=== PATIENT | female | born 1965 | race American Indian/Alaskan Native ===

== ENCOUNTER 2019-04-29 15:36 | Emergency (ER) | payer MEDICARE, OTHER ==
[2019-04-29 17:52] LABS: Basophils % (Auto) 0.7 % (0.0-1.8); Eosinophils # (Auto) 0.3 K/mm3 (0.0-0.4); Eosinophils % (Auto) 4.1 % (0.0-4.3); Hematocrit 35.6 % (30.3-42.9); Hemoglobin 11.6 gm/dl (10.1-14.3); Lymphocytes # (Auto) 1.6 K/mm3 (1.2-5.4); Lymphocytes % (Auto) 24.5 % (13.4-35.0); Mean Corpuscular HGB Conc 33 % (30-34); Mean Corpuscular Volume 85 fl (79-97); Monocytes # (Auto) 0.7 K/mm3 (0.0-0.8); Monocytes % (Auto) 11.3 % (0.0-7.3); Platelet Count 229 K/mm3 (140-440); Red Blood Count 4.21 M/mm3 (3.65-5.03); Red Cell Distribution Width 16.8 % (13.2-15.2)
[2019-04-29 18:03] LABS: BUN/Creatinine Ratio 25; Blood Urea Nitrogen 10 mg/dL (7-17); Calcium 8.6 mg/dL (8.4-10.2); Hemolysis Index 37
--- NOTE | 2019-04-29 18:54 | XRay Report ---
PROCEDURE: XR CHEST 1V AP TECHNIQUE: Chest radiograph single view. HISTORY: cough COMPARISONS: None . FINDINGS: Degenerative change both shoulders. No pneumothorax or right pleural effusion. Cardiac silhouette size slightly enlarged without definite vascular congestion. No acute displaced fracture. Nonspecific opacity in left lung base partly obscures the diaphragm. IMPRESSION: Opacity in left lung base may be small pleural effusion. There may be adjacent atelectasis and/or pne umonia Slight cardiomegaly without definite evidence of vascular congestion. This document is electronically signed by Felipe Bustos MD., April 29 2019 06:52:22 PM ET
[2019-04-29 20:45] LABS: Bacteria,Urine 1+ /HPF (Negative); Bilirubin,Urine NEG (Negative); Blood,Urine NEG (Negative); Color,Urine Yellow (Yellow); Mucus,Urine FEW /HPF; Protein,Urine <15 mg/dL mg/dL (Negative); RBC,Urine < 1.0 /HPF (0.0-6.0); Urobilinogen,Urine < 2.0 mg/dL (<2.0)
[2019-04-29 20:51] LABS: Amphetamine Screen,Urine PRESUMPTIVE NEGATIVE; Benzodiazepines Screen,Urine PRESUMPTIVE NEGATIVE; Cannabinoid Screen,Urine PRESUMPTIVE NEGATIVE; Cocaine Screen,Urine PRESUMPTIVE NEGATIVE; Methadone Screen,Urine PRESUMPTIVE NEGATIVE; Opiate Screen,Urine PRESUMPTIVE NEGATIVE
--- NOTE | 2019-04-29 21:06 | Cat Scan Report ---
PROCEDURE: CT CHEST WO CON TECHNIQUE: Computerized axial tomography of the chest was performed without contrast material. This study is performed without intravenous contrast and the sensitivity for pathology, including neoplasm s, adenopathy, abscess, pulmonary embolism and aortic dissection, is reduced. CT DOSE LENGTH PRODUCT: mGycm HISTORY: abnormal cxr COMPARISONS: None . FINDINGS: Heart and pericardium: Normal. Thoracic aorta: Normal. Pulmonary vasculature: Normal. Lymph nodes: No enlarged thoracic lymph nodes. Multiple nonenlarged lymph nodes are noted in bilater al axillary regions.Lungs: An irregular patchy density is noted involving superior segment left lowe r lobe.. Pleural space: No effusion, thickening, or pneumothorax. Musculoskeletal structures: Vertebral height is normal. There is evidence of ossification of posteri or longitudinal ligament involving T11-L1 vertebrae. Upper abdominal structures: No significant abnormality. IMPRESSION: Findings are consistent with left lower pneumonia.. This document is electronically signed by Floyd Palomo MD., April 29 2019 09:04:43 PM ET
--- NOTE | 2019-04-29 21:17 | Emergency Department Report ---
ED General Adult HPI - General Chief complaint: Altered Mental Status Stated complaint: ALTERED MENTAL STATUS Time Seen by Provider: 04/29/19 17:20 Source: EMS Mode of arrival: Stretcher Limitations: Altered Mental Status - History of Present Illness Initial comments: 54 yo F with hx of schizophrenia sent to ED for "altered mental status." Pt was admitted to [facility] on 04/27/19 for psychosis, delusions, impulsive behavior, speaking in incomplete sentences. Pt was then sedated. Per Abigail, staff at [facility], pt was sent here today for AMS, confusion , speaking in incomplete sentences, incontinence, drowsiness and unsteady gait. Abigail states this seems to be similar to initial admission exam. Upon me entering the room, pt is awake and eating a cheeseburger that was given to her by the of the patient that is sharing an exam room with her, on the other side of the curtain. Pt only states, "I think I have pneumonia." Has no other complaints. Does not appear to be in any distress. Sitter states pt easily falls asleep when we leave the room, however, speaks to her appropriately. -: This afternoon Severity scale (0 -10): 0 Associated Symptoms: cough - Related Data Previous Rx's Medication Instructions Recorded Last Taken Type Azithromycin [Zithromax TAB] 250 mg PO QDAY 4 Days #4 tablet 04/29/19 Unknown Rx Allergies Allergy/AdvReac Type Severity Reaction Status Date / Time haloperidol [From Haldol] Allergy Unknown Verified 04/29/19 16:35 ED Review of Systems ROS: Stated complaint: ALTERED MENTAL STATUS Other details as noted in HPI Comment: All other systems reviewed and negative Respiratory: cough ED Past Medical Hx - Past Medical History Previous Medical History?: Yes Hx Diabetes: Yes Hx Psychiatric Treatment: Yes (eun) - Surgical History Past Surgical History?: No - Social History Smoking Status: Never Smoker Substance Use Type: None - Medications Home Medications: Home Medications Medication Instructions Recorded Confirmed Last Taken Type Azithromycin [Zithromax TAB] 250 mg PO QDAY 4 Days #4 tablet 04/29/19 Unknown Rx ED Physical Exam - General Limitations: Altered Mental Status General appearance: alert, in no apparent distress - Head Head exam: Present: atraumatic, normocephalic - Eye Eye exam: Present: normal appearance - ENT ENT exam: Present: mucous membranes moist - Neck Neck exam: Present: normal inspection - Respiratory Respiratory exam: Present: normal lung sounds bilaterally. Absent: respiratory distress - Cardiovascular Cardiovascular Exam: Present: regular rate, normal rhythm - GI/Abdominal GI/Abdominal exam: Present: soft. Absent: distended, tenderness - Extremities Exam Extremities exam: Present: normal inspection - Neurological Exam Neurological exam: Present: alert - Psychiatric Psychiatric exam: Present: normal affect, normal mood - Skin Skin exam: Present: warm, dry, intact, normal color ED Course Vital Signs 04/29/19 04/29/19 04/29/19 16:34 17:00 17:34 Temperature 98.2 F Pulse Rate 97 H 94 H 99 H Respiratory 16 32 H 18 Rate Blood Pressure 136/86 Blood Pressure 135/74 145/87 [Left] O2 Sat by Pulse 99 98 100 Oximetry 04/29/19 04/29/19 04/29/19 19:03 19:12 19:48 Temperature 98.3 F Pulse Rate 99 H 102 H Respiratory 18 19 Rate Blood Pressure 145/87 135/87 Blood Pressure 145/87 135/87 [Left] O2 Sat by Pulse 98 100 99 Oximetry 04/29/19 04/29/19 20:00 21:00 Temperature Pulse Rate Respiratory Rate Blood Pressure 149/95 Blood Pressure [Left] O2 Sat by Pulse 99 97 Oximetry ED Medical Decision Making - Lab Data Result diagrams: 04/29/19 17:30 04/29/19 17:30 - Radiology Data Radiology results: report reviewed, image reviewed - Medical Decision Making CXR shows opacity in left ling base. CT Chest w/o contrast shows left lower lobe pneumonia. ABG was done due to pt's drowsiness reported by giovaniter. CO2 is not toxic. Pt has been awake and alert, always asking for something to eat. According to information nurse obtained from [facility], pt seems to be stable compared to her presentation 2 days ago. No resp distress. O2 sats have been normal here in ED. Will give first dose of abx here, discharge w/ rx. Critical care attestation.: If time is entered above; I have spent that time in minutes in the direct care of this critically ill patient, excluding procedure time. ED Disposition Clinical Impression: Pneumonia Disposition: DC-01 TO HOME OR SELFCARE Is pt being admited?: No Condition: Stable Instructions: Community-acquired Pneumonia (ED) Prescriptions: Azithromycin [Zithromax TAB] 250 mg PO QDAY 4 Days #4 tablet Referrals: STEPHEN CHING MD [Primary Care Provider] - 3-5 Days Time of Disposition: 21:38
[2019-04-29] MEDS ORDERED: ZITHROMAX PO ONE (21:33)
[2019-04-29] MEDS ORDERED: ROCEPHIN IM ONE (21:33)
[2019-04-29] MEDS ORDERED: XYLOCAINE 1% MPF 5 mL INFILTRATI ONE (21:33)
[2019-04-29 22:36] VITALS: BP 122/80
== END 2019-04-29 23:47 | disposition home or self-care (01) ==
LOC: EDBD → ED 15:36
DX: J18.1 Lobar pneumonia, unspecified organism (principal); E11.9 Type 2 diabetes mellitus without complications; F23 Brief psychotic disorder; F22 Delusional disorders; Z88.5 Allergy status to narcotic agent
CPT/HCPCS: 36415; 71045; 71250; 80048; 80307; 81001; 82140; 82803; 84484; 85025; 96372; 99285; J0696

== ENCOUNTER 2019-05-27 05:39 | Inpatient (IN) | payer MEDICARE ==
[2019-05-27] MEDS ORDERED: WATER FOR INJ Sterile (PF) 10 ML ONE (16:25)
[2019-05-27] MEDS: GEODON IM PRN ×2 (16:29→22:16)
[2019-05-27] MEDS: ATIVAN IM PRN ×2 (16:30→22:17)
[2019-05-27] MEDS ORDERED: D50W (25GM) Syringe IV PRN (19:45)
[2019-05-27] MEDS: HumaLOG SUB-Q SCH (23:19)
[2019-05-28] MEDS: HumaLOG SUB-Q SCH ×4 (08:19→21:35)
--- NOTE | 2019-05-28 08:51 | History and Physical Report ---
GP History & Physical - History of Present Illness Date of admission: 05/28/19 Date of Examination: 05/28/19 Reason for Admission: Danger to self, Danger to others, Psychopathology interference, Unable to care for self Chief Complaint: Inaudible words History of Present Illness: The patient is a 54yo AAF with history of Schizophrenia admitted with severe agitation, aggression towards others and severe disorganization. She brought by family to the ED with reports that patient was sitting outside in the heat for several hours, refused to eat or drinks. She has also been refusing to take her medications for several days. She was agitated in the ED and was given IM Haldol and Ativan. Nursing staff reports that she continues to be agitated, aggressive, disruptive and disorganized on the psych ayala. Her speech is gabbled and difficult to understand. She is aggressive towards staffs - she attempts to bite, spits at and kicks staffs. She attempts to elope from the ayala. She refuses to eat or drink. She is experiencing visual hallucinations - sees her kids on the hallway. Legal Status: Voluntary Patient Problems: Current Active Problems Schizophrenia, disorganized, chronic with acute exacerbation (Acute) Reaction to Hospitalization: Accepting Substance History - Substance History Drug Use: other (Unknown) Hx Tobacco Use: No Past psychiatric history - Past Medical History Past Medical History: diabetes - past Psychiatric treatment and history Psych: Psychosis, Schizophrenia - Social History Social history: lives with family (- with [facility]) Review of Systems ROS unobtainable: due to mental status Results - Results Labs/Vitals: Laboratory Last Values POC Glucose 168 (70-105) H 05/28/19 07:22 Last Vital Signs Temp 98.3 F 05/27/19 22:00 Pulse 100 H 05/27/19 22:00 Resp 18 05/27/19 22:00 BP 106/67 05/27/19 22:00 Pulse Ox 100 05/27/19 22:00 Physical Examination - Constitutional Vitals: Vital Signs Temp Pulse Resp BP Pulse Ox 98.3 F 100 H 18 106/67 100 05/27/19 22:00 05/27/19 22:00 05/27/19 22:00 05/27/19 22:00 05/27/19 22:00 Temperature -Last 24 Hours Temperature 98.3 F Temperature 98.3 F General appearance: Present: well-nourished, disheveled, malodorous - EENT Eyes: Present: PERRL, EOM intact ENT: hearing intact, clear oral mucosa - Neck Neck: Present: supple, normal ROM - Respiratory Respiratory effort: normal Mental Status Exam - Vital signs Last Vital Signs Temp 98.3 F 05/27/19 22:00 Pulse 100 H 05/27/19 22:00 Resp 18 05/27/19 22:00 BP 106/67 05/27/19 22:00 Pulse Ox 100 05/27/19 22:00 - Exam Orientation: person Affect: agitated Mood: congruent with affect Thought content: delusions Thought Process: Disorganized Perceptions: visual, hallucinations Speech: incoherent Concentration: unable to pay attention Motor activity: restless, agitated Level of consciousness: confused Memory: Recent Impaired, Remote Impaired Interaction: hostile, uncooperative Assessment and Plan - Psychiatric problem (1) Schizophrenia, disorganized, chronic with acute exacerbation Current Visit: Yes Status: Acute plan to address problem: Patient will be admitted for inpatient psychiatric evaluation, medication adjustment and close monitoring The patient's behavior, mood, sleep and appetite will be closely monitored. Patient will be enrolled in individual and group therapeutic sessions and encouraged to attend. Patient will be provided with a safe and structured environment. Patient's physical health needs will be addressed by the Hospitalist. Social Assessment will be completed and the Ui Lead Developer will work with patient and family to ensure a suitable and safe disposition Medication adjustment will be made as clinically indicated The patient agreed on the treatment plan, understood the risk, benefit, alternative treatment, potential consequence of no treatment, and gave informed consent. Physician Certification - Certification Statement Physician Certification Statement: This is an acknowledgement statement that MARGARET ROBERTS is a 54 year old F who requires inpatient psychiatric admission for treatment which could reasonably be expected to improve the patient's condition for Estimated period of time patient will need to remain in the hospital: [ ] Plan for post-hospital care: [ ]
[2019-05-28] MEDS ORDERED: GEODON IM PRN (10:00)
[2019-05-28] MEDS ORDERED: RISPERDAL 1 MG PO SCH (10:00)
[2019-05-28] MEDS: RisperDAL PO SCH ×2 (10:34→21:38)
[2019-05-29] MEDS: HumaLOG SUB-Q SCH ×4 (08:09→21:03)
--- NOTE | 2019-05-29 09:46 | Progress Note ---
Subjective Date of service: 05/29/19 Principal diagnosis: Schizophrenia Subjective Comment: Patient is irritable this morning. She continues to be agitated, aggressive, disruptive and disorganized Objective - Criteria for Continued Treatment Criteria for Continued Treatment: Improving Level of Functioning, Stablizing Level of Functioning, Improving Emotional/Socia - Mental Status Mental Status: Oriented x [address] - Objective Observation Participation Level: Minimal Reason(s) For Not Participating: Behaviors Assessment and Plan - Patient Problems (1) Schizophrenia, disorganized, chronic with acute exacerbation Current Visit: Yes Status: Acute Plan to address problem: Patient will be admitted for inpatient psychiatric evaluation, medication adjustment and close monitoring The patient's behavior, mood, sleep and appetite will be closely monitored. Patient will be enrolled in individual and group therapeutic sessions and encouraged to attend. Patient will be provided with a safe and structured environment. Patient's physical health needs will be addressed by the Hospitalist. Social Assessment will be completed and the Cashier Parking Lot will work with patient and family to ensure a suitable and safe disposition Medication adjustment will be made as clinically indicated Continue Risperidone 1mg bid Continue PRN Lorazepam and Geodon for severe agitation Start Tegretol 200mg bid for mood stabilization and aggression The patient agreed on the treatment plan, understood the risk, benefit, alternative treatment, potential consequence of no treatment, and gave informed consent.
[2019-05-29] MEDS: RisperDAL PO SCH ×2 (10:22→21:03)
[2019-05-29] MEDS: ATIVAN IM PRN (22:19)
[2019-05-30] MEDS: HumaLOG SUB-Q SCH ×4 (07:39→21:00)
[2019-05-30] MEDS: RisperDAL PO SCH ×3 (09:46→21:01)
--- NOTE | 2019-05-30 11:59 | Consultation ---
History of Present Illness - Reason for Consult Consult date: 05/30/19 Diabetes,sleep apnea Requesting physician: LOGAN SUGGS - History of Present Illness Patient is 54 yo admitted with schizophrenia with acute exacerbation. Hospitalist service consulted for medical management of diabetes. Review of her chart showed abnormal ABG last month, April. On initial evaluation she was sedated, very drowsy, pulse ox was 87% on room air. I ordered 2 Units Oxygen and ordered stat ABG, Chest X ray. ABG was abnormal with pH 7.33, CO2 of 55 and pO2 of 109 on 2l/min Oxygen. Will start Duoneb, Albuterol prn, consult Pulmonology. Patient has disorganized schizophrenia, so cannot give current history or past medical history and is also sedated. Past History Past Medical History: diabetes, other (schizophrenia) Past Surgical History: Other (Unknown, cannot obtain) Social history: lives with family (- with brother in [facility]) Family history: no significant family history Medications and Allergies Allergies Allergy/AdvReac Type Severity Reaction Status Date / Time haloperidol [From Haldol] Allergy Unknown Verified 04/29/19 16:35 Home Medications Medication Instructions Recorded Confirmed Last Taken Type Amantadine 100 mg PO BID 05/27/19 05/27/19 Unknown History Ativan INJ 2 mg IM Q6HR PRN 05/27/19 05/27/19 Unknown History Combivent Respimat 4 g IH 4XD 05/27/19 05/27/19 Unknown History Haldol 10 mg IM Q6HR PRN 05/27/19 05/27/19 Unknown History Phenytoin 300 mg PO HS 05/27/19 05/27/19 Unknown History Pravastatin 20 mg PO HS 05/27/19 05/27/19 Unknown History Risperdal 1 mg PO BID 05/27/19 05/27/19 Unknown History Azithromycin [Zithromax TAB] 250 mg PO QDAY 05/29/19 05/31/19 Unknown History Active Meds: Active Medications Carbamazepine (Tegretol) 200 mg PO BID REPLACED BY [facility] Last Admin: 05/30/19 09:46 Dose: 200 mg Documented by: Dextrose (D50w (25gm) Syringe) 50 ml IV PRN PRN PRN Reason: Hypoglycemia Insulin Human Lispro (Humalog) 0 unit SUB-Q ACHS REPLACED BY [facility]; Protocol Last Admin: 05/30/19 07:39 Dose: 4 unit Documented by: Lorazepam (Ativan) 2 mg IM Q6H PRN PRN Reason: Agitation Last Admin: 05/29/19 22:19 Dose: 2 mg Documented by: Risperidone (Risperdal) 1 mg PO BID [facility] Last Admin: 05/30/19 09:46 Dose: 1 mg Documented by: Ziprasidone (Geodon) 20 mg IM Q12H PRN PRN Reason: Agitation Stop: 05/31/19 09:59 Review of Systems ROS unobtainable: due to mental status Exam - Physical Exam Narrative exam: Gen: Not in acute distress, lying in bed, HEENT: Normocephalic, atraumatic Neck: supple, no JVD Heart: S1 and S2 reg, no murmurs, rubs or gallop Lungs: Clear, no crackles, no wheeze Abd: soft, non tender, non distended, normal BS Ext: No edema, no clubbing, no cyanosis, Neuro: Sedated, drowsy, arouseable - Constitutional Vitals: Temp Pulse Resp BP Pulse Ox 98 F 125 H 18 112/76 87 05/30/19 08:50 05/30/19 08:50 05/30/19 08:50 05/30/19 08:50 05/30/19 08:50 Results - Labs Labs: Abnormal lab results 05/29/19 05/29/19 05/30/19 Range/Units 16:19 19:59 07:08 POC Glucose 216 H 244 H 255 H (70-105) 05/30/19 Range/Units 11:31 POC Glucose 146 H (70-105) Assessment and Plan Schizopphrenia, exacerbation [facility] Hospitalist consulted for medical co-morbidities Acute resp failure with hypoxia, hypercarbia ABG done Start Duoneb q 6h Albuterol Consult Pulmonology Patient has abnormal ABG with PH 7.33, CO2 of 55 and pO2 of 109 on 2l/min Oxygen Initial evaluation showed patient very drowsy and I ordered pulse Ox was low 87%, therfore ordered ABG and consult Pulm. Cannot obtain history from patient. She propably has sleep apnea or maybe COPD but no history, no family present Obtain CBC,BMP Schizophrenia managed by Psychiatry Diabetes mellitus type 2 Fingerstick qac and hs Full code status.
--- NOTE | 2019-05-30 12:33 | XRay Report ---
CHEST 1 VIEW 12:17 PM INDICATION / CLINICAL INFORMATION: Hypoxia. COMPARISON: 04/29/2019 FINDINGS: SUPPORT DEVICES: None. HEART / MEDIASTINUM: There is mild cardiomegaly. Pulmonary vasculature is normal. LUNGS / PLEURA: No significant pulmonary or pleural abnormality. Mild increased opacity in both lower lung zones has cleared. ADDITIONAL FINDINGS: There are degenerative changes involving the spine and shoulders. IMPRESSION: Cardiomegaly without acute abnormality. Signer Name: Rocco Renee MD Signed: 05/30/2019 12:29 PM Workstation Name: [id number]
[2019-05-30] MEDS ORDERED: PROVENTIL IH PRN (13:42)
[2019-05-30] MEDS ORDERED: ATIVAN IM PRN (17:42)
[2019-05-30] MEDS: DUONEB *Not for PRN Use IH SCH ×2 (17:47→20:19)
--- NOTE | 2019-05-30 17:47 | Consultation ---
History of Present Illness Reason for consult: other (sedation acute resp failure) History of present illness: This is a 54 yo female w hx of schizophrenia who was recently admitted from home for agitation and disorganization. She had episode of agitation last PM and received ativan. She has been lethargi. Abg done showed some acute and possible chronic resp acidosis. She also has had BG checked and today no evidence of hypoglycemia Presently she is arousable but falls asleep easily Past History Past Medical History: diabetes Past Surgical History: Other (Unknown, cannot obtain) Social history: lives with family (- with brother in [facility]) Family history: no significant family history Medications and Allergies Allergies Allergy/AdvReac Type Severity Reaction Status Date / Time haloperidol [From Haldol] Allergy Unknown Verified 04/29/19 16:35 Home Medications Medication Instructions Recorded Confirmed Last Taken Type Amantadine 100 mg PO BID 05/27/19 05/27/19 Unknown History Ativan INJ 2 mg IM Q6HR PRN 05/27/19 05/27/19 Unknown History Combivent Respimat 4 g IH 4XD 05/27/19 05/27/19 Unknown History Haldol 10 mg IM Q6HR PRN 05/27/19 05/27/19 Unknown History Phenytoin 300 mg PO HS 05/27/19 05/27/19 Unknown History Pravastatin 20 mg PO HS 05/27/19 05/27/19 Unknown History Risperdal 1 mg PO BID 05/27/19 05/27/19 Unknown History Azithromycin [Zithromax TAB] 250 mg PO QDAY 05/29/19 Unknown History Active Meds: Active Medications Albuterol (Proventil) 2.5 mg IH Q4HRT PRN PRN Reason: Shortness Of Breath Albuterol/Ipratropium (Duoneb *Not For Prn Use*) 1 ampul IH Q6HRT [facility] Carbamazepine (Tegretol) 200 mg PO BID [facility] Last Admin: 05/30/19 09:46 Dose: 200 mg Documented by: Dextrose (D50w (25gm) Syringe) 50 ml IV PRN PRN PRN Reason: Hypoglycemia Insulin Human Lispro (Humalog) 0 unit SUB-Q [facility]; Protocol Last Admin: 05/30/19 13:07 Dose: Not Given Documented by: Risperidone (Risperdal) 1 mg PO BID [facility] Last Admin: 05/30/19 09:46 Dose: 1 mg Documented by: Ziprasidone (Geodon) 20 mg IM Q12H PRN PRN Reason: Agitation Stop: 05/31/19 09:59 Physical Examination Vital signs: Vital Signs Temp Pulse Resp BP Pulse Ox 98.3 F 100 H 18 106/67 100 05/27/19 13:22 05/27/19 13:22 05/27/19 13:22 05/27/19 13:22 05/27/19 13:22 General appearance: no acute distress Eyes: non-icteric ENT: oropharynx moist Neck: supple Effort: normal Results - Laboratory Findings ABG POC ABG pH 7.335 (7.35-7.45) L 05/30/19 12:29 POC ABG pCO2 55.4 (35-45) H 05/30/19 12:29 POC ABG pO2 109 (80-105) H 05/30/19 12:29 POC ABG HCO3 29.5 (22-26 mml/L) 05/30/19 12:29 POC ABG Total CO2 31 (23-27mmol/L) 05/30/19 12:29 POC ABG O2 Sat 98 05/30/19 12:29 Abnormal lab findings: Abnormal Labs 05/27/19 05/27/19 05/27/19 13:35 16:46 19:56 POC ABG pH POC ABG pCO2 POC ABG pO2 POC Glucose 183 H 180 H 181 H 05/28/19 05/28/19 05/28/19 07:22 11:56 16:31 POC ABG pH POC ABG pCO2 POC ABG pO2 POC Glucose 168 H 256 H 213 H 05/28/19 05/29/19 05/29/19 20:06 07:22 11:44 POC ABG pH POC ABG pCO2 POC ABG pO2 POC Glucose 289 H 172 H 241 H 05/29/19 05/29/19 05/30/19 16:19 19:59 07:08 POC ABG pH POC ABG pCO2 POC ABG pO2 POC Glucose 216 H 244 H 255 H 05/30/19 05/30/19 05/30/19 11:31 12:29 16:20 POC ABG pH 7.335 L POC ABG pCO2 55.4 H POC ABG pO2 109 H POC Glucose 146 H 169 H - Diagnostic Findings Chest x-ray: report reviewed, image reviewed
--- NOTE | 2019-05-30 18:48 | Progress Note ---
Subjective Date of service: 05/30/19 Principal diagnosis: Schizophrenia Subjective Comment: Patient slept through the night. She is calm this morning but continues to be be agitated, aggressive, disruptive and disorganized at times. Objective - Criteria for Continued Treatment Criteria for Continued Treatment: Improving Level of Functioning, Improving Treatment / Medication Compliance, Confronting Denial of Illness, Stablizing Level of Functioning, Improving Emotional/Socia, Decreasing Frequency of Hospitalization - Mental Status Mental Status: Oriented x [address] - Objective Observation Participation Level: Minimal Reason(s) For Not Participating: Behaviors Assessment and Plan - Patient Problems (1) Schizophrenia, disorganized, chronic with acute exacerbation Current Visit: Yes Status: Acute Plan to address problem: Patient will be admitted for inpatient psychiatric evaluation, medication adjustment and close monitoring The patient's behavior, mood, sleep and appetite will be closely monitored. Patient will be enrolled in individual and group therapeutic sessions and encouraged to attend. Patient will be provided with a safe and structured environment. Patient's physical health needs will be addressed by the Hospitalist. Social Assessment will be completed and the Tape Recorder Mechanic will work with patient and family to ensure a suitable and safe disposition Medication adjustment will be made as clinically indicated Continue Risperidone 1mg bid Continue PRN Lorazepam and Geodon for severe agitation Continue Tegretol 200mg bid for mood stabilization and aggression (Started on 05/30) The patient agreed on the treatment plan, understood the risk, benefit, alternative treatment, potential consequence of no treatment, and gave informed consent.
[2019-05-31] MEDS: DUONEB *Not for PRN Use IH SCH ×4 (02:56→22:03)
[2019-05-31] MEDS: HumaLOG SUB-Q SCH ×4 (09:45→21:39)
[2019-05-31] MEDS: RisperDAL PO SCH ×2 (09:46→21:39)
--- NOTE | 2019-05-31 10:25 | Progress Note ---
Subjective Date of service: 05/31/19 Principal diagnosis: Schizophrenia Subjective Comment: Patient slept through the night. She is calm and cooperative, compliant with medications, sleeps and eats well. No agitation or prn meds required for more than 24 hours. Will plan to discharge in am if she continues to do well. Objective - Mental Status Mental Status: Oriented x [address] - Objective Observation Participation Level: Moderate Assessment and Plan - Patient Problems (1) Schizophrenia, disorganized, chronic with acute exacerbation Current Visit: Yes Status: Acute Plan to address problem: Patient will be admitted for inpatient psychiatric evaluation, medication adjustment and close monitoring The patient's behavior, mood, sleep and appetite will be closely monitored. Patient will be enrolled in individual and group therapeutic sessions and encouraged to attend. Patient will be provided with a safe and structured environment. Patient's physical health needs will be addressed by the Hospitalist. Social Assessment will be completed and the Floor Sander will work with patient and family to ensure a suitable and safe disposition Medication adjustment will be made as clinically indicated Continue Risperidone 1mg bid Continue PRN Lorazepam and Geodon for severe agitation Continue Tegretol 200mg bid for mood stabilization and aggression (Started on 05/30) The patient agreed on the treatment plan, understood the risk, benefit, alternative treatment, potential consequence of no treatment, and gave informed consent.
--- NOTE | 2019-05-31 15:52 | Progress Note ---
Assessment and Plan Imp: 1. A/C respiratory failure, hypercapnea (? medication-related, ? COPD) 2. Acute respiratory failure, hypoxia 2/2 above 3. Schizophrenia with acute exac. 4. Altered mental status, better Rec: 1. Goal sats are 88-92% 2. Prior to d/c would check RA sats at rest and w/ exertion; if less than 88% arrange home O2 2L NC with diagnosis of COPD (presumptive dx) 3. May benefit from home nebulizer machine and continued Duonebs QID prn, see #2 4. Needs outpatient pulm f/u; PFTs would be beneficial but I doubt she could cooperate with such 5. Avoid narcotics and other sedatives if possible No family present Subjective Date of service: 05/31/19 Principal diagnosis: Schizophrenia Interval history: No events. Poor historian. Awake, alert. O2 off currently. Denies SOB. Unable to tell me about smoking hx. Active Medications Albuterol (Proventil) 2.5 mg IH Q4HRT PRN PRN Reason: Shortness Of Breath Albuterol/Ipratropium (Duoneb *Not For Prn Use*) 1 ampul IH Q6HRT [facility] Last Admin: 05/31/19 10:57 Dose: 1 ampul Documented by: Carbamazepine (Tegretol) 200 mg PO BID [facility] Last Admin: 05/31/19 09:46 Dose: 200 mg Documented by: Dextrose (D50w (25gm) Syringe) 50 ml IV PRN PRN PRN Reason: Hypoglycemia Insulin Human Lispro (Humalog) 0 unit SUB-Q ACHS [facility]; Protocol Last Admin: 05/31/19 12:48 Dose: 4 unit Documented by: Lorazepam (Ativan) 1 mg IM Q8H PRN PRN Reason: Agitation Risperidone (Risperdal) 1 mg PO BID [facility] Last Admin: 05/31/19 09:46 Dose: 1 mg Documented by: Objective Vital Signs - 12hr 05/31/19 05/31/19 05/31/19 09:31 10:50 10:59 Temperature 97.5 F L Pulse Rate 110 H Pulse Rate [ 117 H Left Throughout ] Pulse Rate [ 112 H Right Throughout] Respiratory 20 Rate Respiratory 18 Rate [Left Throughout] Respiratory 18 Rate [Right Throughout] Blood Pressure 122/78 [Right] O2 Sat by Pulse 99 97 Oximetry 05/31/19 11:04 Temperature Pulse Rate Pulse Rate [ 112 H Left Throughout ] Pulse Rate [ 114 H Right Throughout] Respiratory Rate Respiratory 18 Rate [Left Throughout] Respiratory 18 Rate [Right Throughout] Blood Pressure [Right] O2 Sat by Pulse Oximetry Constitutional: no acute distress Eyes: non-icteric ENT: oropharynx moist Neck: supple Effort: normal Ascultation: Bilateral: wheezes (mild/faint expiratory wheezes) Cardiovascular: regular rate and rhythm (no mrg) Gastrointestinal: normoactive bowel sounds, soft, non-tender, non-distended Integumentary: normal Extremities: no cyanosis, no edema, pink and warm Neurologic: normal mental status, non-focal exam Psychiatric: mood appropriate, affect normal ABG, PT/INR, D-dimer: ABG POC ABG pH 7.306 (7.35-7.45) L 05/30/19 20:26 POC ABG pCO2 58.9 (35-45) H 05/30/19 20:26 POC ABG pO2 155 (80-105) H 05/30/19 20:26 POC ABG HCO3 29.4 (22-26 mml/L) 05/30/19 20:26 POC ABG Total CO2 31 (23-27mmol/L) 05/30/19 20:26 POC ABG O2 Sat 99 05/30/19 20:26 Abnormal lab findings: Abnormal Labs 05/27/19 05/27/19 05/27/19 13:35 16:46 19:56 POC ABG pH POC ABG pCO2 POC ABG pO2 POC Glucose 183 H 180 H 181 H 05/28/19 05/28/19 05/28/19 07:22 11:56 16:31 POC ABG pH POC ABG pCO2 POC ABG pO2 POC Glucose 168 H 256 H 213 H 05/28/19 05/29/19 05/29/19 20:06 07:22 11:44 POC ABG pH POC ABG pCO2 POC ABG pO2 POC Glucose 289 H 172 H 241 H 05/29/19 05/29/19 05/30/19 16:19 19:59 07:08 POC ABG pH POC ABG pCO2 POC ABG pO2 POC Glucose 216 H 244 H 255 H 05/30/19 05/30/19 05/30/19 11:31 12:29 16:20 POC ABG pH 7.335 L POC ABG pCO2 55.4 H POC ABG pO2 109 H POC Glucose 146 H 169 H 05/30/19 05/30/19 05/31/19 20:26 20:45 06:46 POC ABG pH 7.306 L POC ABG pCO2 58.9 H POC ABG pO2 155 H POC Glucose 185 H 153 H 05/31/19 11:47 POC ABG pH POC ABG pCO2 POC ABG pO2 POC Glucose 262 H Chest x-ray: report reviewed, image reviewed (clear lungs)
[2019-06-01] MEDS: DUONEB *Not for PRN Use IH SCH ×2 (06:09→08:42)
[2019-06-01] MEDS ORDERED: PROVENTIL IH PRN (08:42)
[2019-06-01] MEDS: HumaLOG SUB-Q SCH ×4 (08:44→21:17)
[2019-06-01] MEDS: RisperDAL PO SCH ×2 (09:40→21:21)
--- NOTE | 2019-06-01 10:23 | Progress Note ---
Subjective Date of service: 06/01/19 Principal diagnosis: Schizophrenia Subjective Comment: Patient is disorganized, unable to care for self and unsafe for discharge home. She is compliant with medications with no reported or observed side effects. She is uncooperative with interview this morning. Appears irritable. Objective - Criteria for Continued Treatment Criteria for Continued Treatment: Improving Level of Functioning, Stablizing Level of Functioning, Improving Emotional/Socia - Mental Status Mental Status: Oriented x 1 Person only - Objective Observation Participation Level: Minimal Assessment and Plan - Patient Problems (1) Schizophrenia, disorganized, chronic with acute exacerbation Current Visit: Yes Status: Acute Plan to address problem: Patient will be admitted for inpatient psychiatric evaluation, medication adjustment and close monitoring The patient's behavior, mood, sleep and appetite will be closely monitored. Patient will be enrolled in individual and group therapeutic sessions and encouraged to attend. Patient will be provided with a safe and structured environment. Patient's physical health needs will be addressed by the Hospitalist. Social Assessment will be completed and the Livestock Judging Coach will work with patient and family to ensure a suitable and safe disposition Medication adjustment will be made as clinically indicated Continue Risperidone 1mg bid Continue PRN Lorazepam and Geodon for severe agitation Continue Tegretol 200mg bid for mood stabilization and aggression (Started on 05/30) The patient agreed on the treatment plan, understood the risk, benefit, alte rnative treatment, potential consequence of no treatment, and gave informed consent.
--- NOTE | 2019-06-01 13:31 | Event Note ---
Date: 06/01/19 Reviewed notes. Patient refusing O2. O2 saturation on RA is normal. Can remain off of O2 as long as O2 sats > 88%. She is also non-compliant with breathing treatments. If she continues to refuse these and remains otherwise stable pulmonary-moran there would be no need to get these arranged for outpatient use. We will follow peripherally but please call with questions or concerns.
[2019-06-02] MEDS: HumaLOG SUB-Q SCH ×4 (09:43→21:20)
[2019-06-02] MEDS: RisperDAL PO SCH ×2 (09:44→21:21)
--- NOTE | 2019-06-02 15:32 | Progress Note ---
Subjective Date of service: 06/02/19 Principal diagnosis: Schizophrenia Subjective Comment: Patient is disorganized, unable to care for self and unsafe for discharge home. She is compliant with medications with no reported or observed side effects. She is uncooperative with interview this morning. Objective - Criteria for Continued Treatment Criteria for Continued Treatment: Improving Level of Functioning, Stablizing Level of Functioning, Improving Emotional/Socia - Mental Status Mental Status: Oriented x [address] & [address] - Objective Observation Participation Level: Minimal Assessment and Plan - Patient Problems (1) Schizophrenia, disorganized, chronic with acute exacerbation Current Visit: Yes Status: Acute Plan to address problem: Patient will be admitted for inpatient psychiatric evaluation, medication adjustment and close monitoring The patient's behavior, mood, sleep and appetite will be closely monitored. Patient will be enrolled in individual and group therapeutic sessions and encouraged to attend. Patient will be provided with a safe and structured environment. Patient's physical health needs will be addressed by the Hospitalist. Social Assessment will be completed and the Examiner Of Currency will work with patient and family to ensure a suitable and safe disposition Medication adjustment will be made as clinically indicated Continue Risperidone 1mg bid Continue PRN Lorazepam and Geodon for severe agitation Continue Tegretol 200mg bid for mood stabilization and aggression (Started on 05/30) The patient agreed on the treatment plan, understood the risk, benefit, alternative treatment, potential consequence of no treatment, and gave informed consent.
--- NOTE | 2019-06-02 15:48 | Progress Note ---
Assessment and Plan - Patient Problems (1) COPD (chronic obstructive pulmonary disease) Current Visit: Yes Status: Acute (2) Schizophrenia, disorganized, chronic with acute exacerbation Current Visit: Yes Status: Acute (3) Altered mental status Current Visit: Yes Status: Acute (4) Acute respiratory failure with hypercapnia Current Visit: Yes Status: Acute (5) Acute respiratory failure with hypoxemia Current Visit: Yes Status: Acute Subjective Principal diagnosis: Schizophrenia Interval history: awake and responsive Answers questions but hard to understand Objective Constitutional: no acute distress Eyes: non-icteric ENT: oropharynx moist Neck: supple Effort: normal Ascultation: Bilateral: wheezes (mild/faint expiratory wheezes) Cardiovascular: regular rate and rhythm (no mrg) Gastrointestinal: normoactive bowel sounds, soft, non-tender, non-distended Integumentary: normal Extremities: no cyanosis, no edema, pink and warm Neurologic: normal mental status, non-focal exam Psychiatric: mood appropriate, affect normal ABG, PT/INR, D-dimer: ABG POC ABG pH 7.306 (7.35-7.45) L 05/30/19 20:26 POC ABG pCO2 58.9 (35-45) H 05/30/19 20:26 POC ABG pO2 155 (80-105) H 05/30/19 20:26 POC ABG HCO3 29.4 (22-26 mml/L) 05/30/19 20:26 POC ABG Total CO2 31 (23-27mmol/L) 05/30/19 20:26 POC ABG O2 Sat 99 05/30/19 20:26 Abnormal lab findings: Abnormal Labs 05/27/19 05/27/19 05/27/19 13:35 16:46 19:56 POC ABG pH POC ABG pCO2 POC ABG pO2 POC Glucose 183 H 180 H 181 H 05/28/19 05/28/19 05/28/19 07:22 11:56 16:31 POC ABG pH POC ABG pCO2 POC ABG pO2 POC Glucose 168 H 256 H 213 H 05/28/19 05/29/19 05/29/19 20:06 07:22 11:44 POC ABG pH POC ABG pCO2 POC ABG pO2 POC Glucose 289 H 172 H 241 H 05/29/19 05/29/19 05/30/19 16:19 19:59 07:08 POC ABG pH POC ABG pCO2 POC ABG pO2 POC Glucose 216 H 244 H 255 H 05/30/19 05/30/19 05/30/19 11:31 12:29 16:20 POC ABG pH 7.335 L POC ABG pCO2 55.4 H POC ABG pO2 109 H POC Glucose 146 H 169 H 05/30/19 05/30/19 05/31/19 20:26 20:45 06:46 POC ABG pH 7.306 L POC ABG pCO2 58.9 H POC ABG pO2 155 H POC Glucose 185 H 153 H 05/31/19 05/31/19 05/31/19 11:47 16:53 20:49 POC ABG pH POC ABG pCO2 POC ABG pO2 POC Glucose 262 H 222 H 205 H 06/01/19 06/01/19 06/01/19 07:11 11:32 16:44 POC ABG pH POC ABG pCO2 POC ABG pO2 POC Glucose 170 H 279 H 262 H 06/01/19 06/02/19 06/02/19 20:10 08:39 11:53 POC ABG pH POC ABG pCO2 POC ABG pO2 POC Glucose 235 H 171 H 207 H
[2019-06-03] MEDS: HumaLOG SUB-Q SCH ×4 (08:50→21:37)
[2019-06-03] MEDS: RisperDAL PO SCH ×2 (09:05→21:36)
--- NOTE | 2019-06-03 22:14 | Progress Note ---
Subjective Date of service: 06/03/19 Principal diagnosis: Schizophrenia Subjective Comment: Patient is disorganized, unable to care for self and unsafe for discharge home. She is compliant with medications with no reported or observed side effects. She is uncooperative with interview this morning. Objective - Criteria for Continued Treatment Criteria for Continued Treatment: Improving Level of Functioning, Stablizing Level of Functioning, Improving Emotional/Socia - Mental Status Mental Status: Oriented x 1 Person only - Objective Observation Participation Level: Moderate Assessment and Plan - Patient Problems (1) Schizophrenia, disorganized, chronic with acute exacerbation Current Visit: Yes Status: Acute Plan to address problem: Patient will be admitted for inpatient psychiatric evaluation, medication ad justment and close monitoring The patient's behavior, mood, sleep and appetite will be closely monitored. Patient will be enrolled in individual and group therapeutic sessions and encouraged to attend. Patient will be provided with a safe and structured environment. Patient's physical health needs will be addressed by the Hospitalist. Social Assessment will be completed and the Eeo Officer will work with patient and family to ensure a suitable and safe disposition Medication adjustment will be made as clinically indicated Continue Risperidone 1mg bid Continue PRN Lorazepam and Geodon for severe agitation Continue Tegretol 200mg bid for mood stabilization and aggression (Started on 05/30) The patient agreed on the treatment plan, understood the risk, benefit, alternative treatment, potential consequence of no treatment, and gave informed consent.
[2019-06-04 00:35] VITALS: BP 125/75
[2019-06-04] MEDS: HumaLOG SUB-Q SCH ×4 (12:05→23:01)
[2019-06-04] MEDS: RisperDAL PO SCH ×2 (12:06→21:41)
--- NOTE | 2019-06-04 17:05 | Progress Note ---
Subjective Date of service: 06/04/19 Principal diagnosis: Schizophrenia Subjective Comment: Patient is calm, feds herself and participate in her self care. She is compliant with medications with no reported or observed side effects. Will plan to discharge patient in am tomorrow if she continues to do well. Objective - Criteria for Continued Treatment Criteria for Continued Treatment: Stablizing Level of Functioning, Improving Emotional/Socia - Mental Status Mental Status: Oriented x [address] - Objective Observation Participation Level: Moderate Assessment and Plan - Patient Problems (1) Schizophrenia, disorganized, chronic with acute exacerbation Current Visit: Yes Status: Acute Plan to address problem: Patient will be admitted for inpatient psychiatric evaluation, medication adjustment and close monitoring The patient's behavior, mood, sleep and appetite will be closely monitored. Patient will be enrolled in individual and group therapeutic sessions and encouraged to attend. Patient will be provided with a safe and structured environment. Patient's physical health needs will be addressed by the Hospitalist. Social Assessment will be completed and the Technical Operations Manager will work with marvel ent and family to ensure a suitable and safe disposition Medication adjustment will be made as clinically indicated Continue Risperidone 1mg bid Continue PRN Lorazepam and Geodon for severe agitation Continue Tegretol 200mg bid for mood stabilization and aggression (Started on 05/30) The patient agreed on the treatment plan, understood the risk, benefit, alternative treatment, potential consequence of no treatment, and gave informed consent.
[2019-06-05] MEDS: HumaLOG SUB-Q SCH ×3 (07:30→18:55)
--- NOTE | 2019-06-05 07:58 | Discharge Summary ---
Providers - Providers Date of Admission: 05/27/19 07:15 Date of discharge: 06/05/19 Attending physician: LOGAN SUGGS MD 05/30/19 12:55 Consult to Physician [CONS] Routine Comment: Consulting Provider: JOHN CALIX Physician Instructions: Reason For Exam: Acute resp failure with hypoxia and hypercarbia 06/01/19 08:29 Consult to Physician [CONS] Routine Comment: Consulting Provider: RIKY CORTES Physician Instructions: Reason For Exam: MEDICAL MANAGEMENT H&P [facility] Reason for admission: Stting outside in the heat for several hours, refused to eat, drink or take Condition: Good Hospital course: The patient was provided inpatient psychiatric treatment with safe and supportive environment, group therapy, individual counseling, psychiatric medication, medication adjustment, adverse effect monitor, medical evaluation, medical treatment, social service assessment, family/social support meeting, placement assessment and psycho-education. The patients mood, anxiety, thoughts, stress management skill, cognition, impulse/anger control, motivation, understanding of disease, compliance to treatment and appreciation on family/social support are improved and stabilized. At the time of discharge, the patient had no suicidal ideas, no homicidal ideas, no aggressive thoughts, no endangering behavior and no debilitating adverse effects. The patient agreed on the treatment plan, understood the risk, benefit, alternative treatment, potential consequence of no treatment, and gave informed consent. The patient was advised to be compliant with medications, not to use drugs and not to drink alcohol. The patient understands that if suicidal ideas, homicidal ideas, or any endangering thoughts arise, the patient should immediately seek for emergent assistance including but not limited to crisis hot line and emergency room. Follow up with out-patient Psychiatrist and PCP within 14 - 21 days of discharge. Disposition: - TO HOME OR SELFCARE Allergies/Adverse Reactions: Allergies haloperidol [From Haldol] Allergy (Verified 04/29/19 16:35) Unknown Vital Signs: Last Vital Signs Temp 98.4 F 06/04/19 00:35 Pulse 110 H 06/04/19 00:35 Resp 18 06/04/19 00:35 BP 125/75 06/04/19 00:35 Pulse Ox 100 06/04/19 00:35 Last Lab: Laboratory Last Values POC ABG pH 7.306 (7.35-7.45) L 07/07/19 20:26 POC ABG pCO2 58.9 (35-45) H 05/30/19 20:26 POC ABG pO2 155 (80-105) H 05/30/19 20:26 POC ABG HCO3 29.4 (22-26 mml/L) 05/30/19 20:26 POC ABG Total CO2 31 (23-27mmol/L) 05/30/19 20:26 POC ABG O2 Sat 99 05/30/19 20:26 POC ABG Base Excess 3 ((-2) - (+3)mmol/L) 05/30/19 20:26 3 % 05/30/19 20:26 POC Glucose 161 (70-105) H 06/05/19 07:05 - Discharge Diagnoses (1) Schizophrenia, disorganized, chronic with acute exacerbation Status: Acute Core Measure Documentation - Palliative Care Palliative Care/ Comfort Measures: Not Applicable - Core Measures Any of the following diagnoses?: none Exam - Constitutional Vitals: Temp Pulse Resp BP Pulse Ox 98.4 F 110 H 18 125/75 100 06/04/19 00:35 06/04/19 00:35 06/04/19 00:35 06/04/19 00:35 06/04/19 00:35 General appearance: Present: no acute distress, well-nourished - EENT Eyes: Present: PERRL, EOM intact ENT: hearing intact, clear oral mucosa - Neck Neck: Present: supple, normal ROM - Respiratory Respiratory effort: normal Plan Activity: advance as tolerated Weight Bearing Status: Weight Bear as Tolerated Follow up with: STEPHEN CHING MD [Primary Care Provider] - 7 Days Prescriptions: risperiDONE [RisperDAL] 1 mg PO BID #60 tablet carBAMazepine [TEGretol] 200 mg PO BID #60 tablet
[2019-06-05] MEDS: RisperDAL PO SCH (09:29)
== END 2019-06-05 20:05 | disposition home or self-care (01) | DRG 885 ==
LOC: 5A 07:15
PROVIDERS: ADMIT Psychiatry & Neurology Psychiatry; ATTEND Psychiatry & Neurology Psychiatry
PROC: 4A033R1 Measurement of Arterial Saturation, Peripheral, Percutaneous Approach (ICD-10-PCS; principal; 2019-05-30)
DX: F20.1 Disorganized schizophrenia (principal); J96.21 Acute and chronic respiratory failure with hypoxia; J96.22 Acute and chronic respiratory failure with hypercapnia; F31.10 Bipolar disorder, current episode manic without psychotic features, unspecified; E11.9 Type 2 diabetes mellitus without complications; Z88.8 Allergy status to other drugs, medicaments and biological substances; Z91.19 Patient's noncompliance with other medical treatment and regimen; Z71.89 Other specified counseling; Z79.84 Long term (current) use of oral hypoglycemic drugs
CPT/HCPCS: 36600; 71045; 82803; 82962; 93005; 93010; 94640; 94760; G0378; J1815; J2060; J3486